=== PATIENT | male | born 1990 | race Two or more races ===

== ENCOUNTER 2020-09-30 12:42 | Emergency (ER) | payer OTHER ==
[~2020-09-30] VITALS: Ht 198.1 cm; Wt 102.1 kg
[2020-09-30] MEDS ORDERED: BACITRACIN-POL3.5 GM TOP (17:00)
[2020-10-22] MEDS ORDERED: ACETAMINOPHEN500 M2 (17:07)
== END 2020-09-30 17:11 | disposition home or self-care (01) ==
LOC: ER 12:42
DX: S21.221A Laceration with foreign body of right back wall of thorax without penetration into thoracic cavity, initial encounter (principal); W01.118A Fall on same level from slipping, tripping and stumbling with subsequent striking against other sharp object, initial encounter; Y93.E1 Activity, personal bathing and showering; Y92.59 Other trade areas as the place of occurrence of the external cause; Y99.8 Other external cause status